=== PATIENT | male | born 1970 | race Caucasian/White ===

== ENCOUNTER 2023-09-18 21:18 | Emergency (ER) | payer OTHER ==
[2023-09-18 21:41] VITALS: BP 138/91; PULSE 91; RESP 17; TEMP 98.1; BMI 24.4
== END 2023-09-18 23:16 | disposition home or self-care (01) ==
LOC: JER 21:18
DX: T50.911A Poisoning by multiple unspecified drugs, medicaments and biological substances, accidental (unintentional), initial encounter (principal)
CPT/HCPCS: 99283-25